=== PATIENT | female | born 1940 | race Caucasian/White ===

== ENCOUNTER 2017-02-17 08:45 | Day surgery (SDC) | payer MEDICARE, OTHER ==
[~2017-02-17] VITALS: Ht 175.3 cm; Wt 110.6 kg
[~2017-02-17 08:45] MED LIST: AMBIEN5 M1 PO; ANTIVERT25 M1 PO; ARIXTRA2.5 MG/0.5 SQ; ASPIRIN81 M1 PO; ASPIRIN81 MG PO; CLARINEX5 MG PO; CLARITIN-D 241 EAC2 PO; COUMADIN1 M1 PO; COUMADIN1 MG PO; COUMADIN2.5 M1 PO; COUMADIN2.5 MG PO; COUMADIN5 M2 PO; CPAP NS; CYMBALTA60 M1 PO; CYMBALTA60 MG PO; DULERA 100 MCG/13 G1 INH; DULERA INH; FISH OIL300 MG PO; GARLIC1 CAP PO; H PO; HERBAL LAXATIVE PO; LASIX40 M1 PO; LEVAQUIN750 M1 PO; LIPITOR40 MG PO; LOVENOX; LOVENOX150 MG/1 M SC; LOVENOX150 MG/ML SQ; LOVENOX40 MG/0.1 SQ; LOVENOX40 MG/0.4 SQ; LOVENOX60 MG/0.1 SC; MULTI COMPLETE1 EAC1 PO; MULTI COMPLETE1 EACH PO; MULTIVITAMIN1 TAB PO; MYRBETRIQ PO; NORCO 7.5/325 T1 TAB PO; NORCO 7.5/3251 TA1 NG; OGEN1.5 MG PO; OMEGA-3 KRILL1 EAC1 PO; OMEGA-3 KRILL1 EACH PO; OMEPRAZOLE20 M2 PO; OMEPRAZOLE20 M3 PO; POLY IRON PO; POLY-IRON 1501 EACH PO; POTASSIUM CHLO20 ME3 PO; POTASSIUM OTC PO; REQUIP0.5 M1 PO; REQUIP0.5 MG PO; SENOKOT-S (SENN1 TAB PO; SULFAMETHOXAZO1 EAC2 PO; SYNTHROID75 MC1 PO; SYNTHROID75 MCG PO; TYLENOL EXTRA500 M1 PO; TYLENOL EXTRA500 MG PO; TYLENOL325 M2 PO; ULTRAM50 M1 PO; VASCULERA630 MG PO; VESICARE5 MG PO; WARFARIN SODIUM1 M2 PO; XANAX0.5 M1 PO; XANAX0.5 MG PO; XARELTO20 M1 PO; ZOLPIDEM TARTRAT5 M2 PO; ZYRTEC10 M3 PO; ZYRTEC5 M1 PO; [UNRECOGNIZED DRUG - OTHER] PO
[2017-02-18] MEDS ORDERED: XARELTO10 M1 PO (11:07)
[2017-02-18] MEDS ORDERED: ULTRAM50 M1 PO (11:09)
[2017-02-18] MEDS ORDERED: ROXICODONE5 M2 PO (11:10)
[2017-02-18] MEDS ORDERED: TYLENOL325 M2 PO (11:11)
[2017-02-18] MEDS ORDERED: MOBIC7.5 M2 PO (11:12)
[2017-02-18] MEDS ORDERED: NORVASC2.5 M1 PO (11:13)
[2017-02-18] MEDS ORDERED: SENOKOT-S TABL1 EACH PO (11:16)
== END 2017-02-18 13:25 ==
LOC: SHSB 08:45 → 5EA 08:45 → SRG 08:45 → ORE 11:01 → PACU 12:17 → 5EA 13:23 → SRG 02-18 13:25
PROC: 0SPC0JC Removal of Synthetic Substitute from Right Knee Joint, Patellar Surface, Open Approach (ICD-10-PCS; principal; 2017-02-17)
DX: M65.9 Synovitis and tenosynovitis, unspecified (principal); M25.861 Other specified joint disorders, right knee; E78.5 Hyperlipidemia, unspecified; E03.9 Hypothyroidism, unspecified; F41.9 Anxiety disorder, unspecified; F32.9 Major depressive disorder, single episode, unspecified; J45.909 Unspecified asthma, uncomplicated; G47.30 Sleep apnea, unspecified; K21.9 Gastro-esophageal reflux disease without esophagitis; M19.90 Unspecified osteoarthritis, unspecified site; Z79.01 Long term (current) use of anticoagulants; Z79.82 Long term (current) use of aspirin; Z79.899 Other long term (current) drug therapy; Z88.8 Allergy status to other drugs, medicaments and biological substances; Z87.891 Personal history of nicotine dependence
CPT/HCPCS: G8978-GP-CI; G8979-GP-CI; G8980-GP-CI; J0171; J0690; J1885; J2270; J2795; J3010